=== PATIENT | female | born 1955 | race Caucasian/White ===

== ENCOUNTER → 2018-02-26 | Outpatient (CLI) | payer OTHER ==
[~2018-02-26] MED LIST: CALC-649 PO; GLUC100018 PO; IBU600 PO; LISI-347 PO; LOR5 PO; MULT-820 PO; NEBI5TAB PO; OMEP-218 PO; PRAS50CA PO; TRAM-627 PO
--- NOTE | 2018-02-27 08:14 | RADIOLOGY IMAGING REPORT ---
FACILITY: [facility] PATIENT NAME: TIESHA HUYNH : [id number] MR: [id number] V: [id number] EXAM DATE: ORDERING PHYSICIAN: STEPHANI WYMAN TECHNOLOGIST: Blanquita Gonzalez PROCEDURE:BILATERAL DIGITAL SCREENING MAMMOGRAM WITH CAD ASSISTED INTERPRETATION & 3D TOMOSYNTHESIS COMPARISON:Prior mammograms 02/07/17, 07/18/11, 07/08/11. INDICATIONS:SCREENING FINDINGS: A small to moderate amount of fibroglandular tissue is seen throughout the breasts. The parenchymal pattern has remained stable allowing for difference in mammographic technique & patient positioning. There is no evidence of malignant appearing mass, malignant appearing calcifications or other secondary sign of malignancy in either breast. DIAGNOSTIC CATEGORY 1--NEGATIVE. RECOMMENDATIONS: ROUTINE MAMMOGRAM AND CLINICAL EVALUATION. IMPRESSION: BIRADS 1: Negative. No significant abnormality is seen. Dictated by: Mimi Ny M.D. on 02/26/2018 at 16:18 Transcribed by: KVNG on 02/26/2018 at 16:21 Approved by: Mimi Ny M.D. on 02/27/2018 at 8:12 [facility]
== END ==
LOC: MAMO 00:41
PROVIDERS: ATTEND Nurse Practitioner Family
DX: Z12.31 Encounter for screening mammogram for malignant neoplasm of breast (principal)
CPT/HCPCS: 77063; 77067